=== PATIENT | female | born 1985 | race Two or more races ===

== ENCOUNTER 2016-12-16 09:54 | Emergency (ER) | payer MEDICAID ==
[~2016-12-16] VITALS: Ht 165.1 cm; Wt 54.4 kg
[2016-12-16 10:10] VITALS: BP 117/62
== END 2016-12-16 10:46 | disposition home or self-care (01) ==
LOC: ER 09:56
DX: J02.9 Acute pharyngitis, unspecified (principal)
CPT/HCPCS: 99283; A4606; Z7610

== ENCOUNTER 2017-02-03 17:03 | Emergency (ER) | payer MEDICAID ==
[~2017-02-03] VITALS: Ht 165.1 cm; Wt 55.3 kg
[2017-02-03 17:03] VITALS: BP 129/81
== END 2017-02-03 18:16 | disposition home or self-care (01) ==
LOC: ER 17:06
DX: M25.531 Pain in right wrist (principal); F41.9 Anxiety disorder, unspecified
CPT/HCPCS: 29125; 73110; 99284; A4606; Z7610

== ENCOUNTER 2017-02-17 11:17 | Emergency (ER) | payer MEDICAID ==
[~2017-02-17] VITALS: Ht 165.1 cm; Wt 55.8 kg
[2017-02-17 11:22] VITALS: BP 105/56
[2017-02-17] MEDS ORDERED: IBUPROFEN 600 MG TABLET PO ONE ×2 (12:21→12:30)
== END 2017-02-17 13:56 | disposition home or self-care (01) ==
LOC: ER 11:19
DX: S93.401A Sprain of unspecified ligament of right ankle, initial encounter (principal); X50.9XXA Other and unspecified overexertion or strenuous movements or postures, initial encounter; Y93.89 Activity, other specified; Y92.89 Other specified places as the place of occurrence of the external cause; Y99.8 Other external cause status
CPT/HCPCS: 73610; 84703; 99284; A4606; Z7610

== ENCOUNTER 2017-07-22 14:18 | Emergency (ER) | payer MEDICAID ==
[~2017-07-22] VITALS: Ht 165.1 cm; Wt 59.0 kg
[2017-07-22 14:18] VITALS: BP 130/81
== END 2017-07-22 16:33 | disposition home or self-care (01) ==
LOC: ER 14:19
DX: M65.4 Radial styloid tenosynovitis [de Quervain] (principal); F10.10 Alcohol abuse, uncomplicated; F32.9 Major depressive disorder, single episode, unspecified; F41.9 Anxiety disorder, unspecified
CPT/HCPCS: 29125; 73130; 99284; A4606; Z7610

== ENCOUNTER 2019-02-17 13:55 | Emergency (ER) | payer MEDICAID ==
[~2019-02-17] VITALS: Ht 165.1 cm; Wt 59.0 kg
--- NOTE | 2019-02-17 14:00 | NUR ---
CAME IN FOR R FLANK PAIN THAT STARTED LAST NIGHT. NOTICED FOUL SMELLING URINE, -DYSURIA. TO ER BED 10, HOOKED TO MONITOR, CHANGED TO GOWN, PROVIDED W WARM BLANKET, AWAITING MD VELAZQUEZ.
--- NOTE | 2019-02-17 14:04 | NUR ---
DR MELLO AT BEDSIDE
[2019-02-17] MEDS ORDERED: ACETAMINOPHEN ES 500 MG TABLET ONE (14:12)
--- NOTE | 2019-02-17 14:16 | NUR ---
PT NOT ABLE TO PROVIDE URINE SAMPLE AT THIS TIME. AWARE
--- NOTE | 2019-02-17 14:18 | NUR ---
US TECH AT BEDSIDE
[2019-02-17 14:19] LABS: BASOPHILS # (AUTO) 0.1 /CMM (0.0-0.2); BASOPHILS % (AUTO) 1.3 % (0.0-2.0); EOSINOPHILS % (AUTO) 6.5 % (0.0-6.0); HEMATOCRIT 37 % (33-45); HEMOGLOBIN 12.5 g/dL (11.5-14.8); LYMPHOCYTES # (AUTO) 2.4 /CMM (0.8-4.8); LYMPHOCYTES % (AUTO) 31.3 % (20.0-44.0); MEAN CORPUSCULAR HGB CONC 34 g/dl (31.0-36.0); MEAN CORPUSCULAR VOLUME 90 fL (82-100); MONOCYTES # (AUTO) 0.5 /CMM (0.1-1.30); MONOCYTES % (AUTO) 7.1 % (2.0-12.0); NEUTROPHILS # (AUTO) 4.1 /CMM (1.8-8.9); NEUTROPHILS % (AUTO) 53.8 % (43.0-81.0); PLATELET COUNT (AUTO) 203 /CMM (150-450); RED BLOOD CELL COUNT(AUTO) 4.11 MIL/uL (4.0-5.2); WHITE BLOOD COUNT (AUTO) 7.7 K/uL (4.3-11.0)
[2019-02-17 14:26] LABS: CALCIUM, SERUM 9.3 mg/dL (8.5-10.1); CREATININE 0.8 mg/dL (0.6-1.3); POTASSIUM 4.6 mmol/L (3.5-5.1)
[2019-02-17] MEDS ORDERED: ACETAMINOPHEN ES 500 MG TABLET PO ONE (14:30)
--- NOTE | 2019-02-17 14:30 | NUR ---
PT REFUSED FOR IV INSERTION. MADE AWARE.
[2019-02-17 14:31] LABS: ALBUMIN 3.8 g/dL (3.4-5.0); BILIRUBIN,DIRECT 0.2 mg/dL (0.0-0.2); BILIRUBIN,TOTAL 1.1 mg/dL (0.2-1.0); TOTAL PROTEIN, SERUM 7.9 g/dL (6.4-8.2)
[2019-02-17 15:20] LABS: APPEARANCE,URINE Clear (CLEAR); BILIRUBIN,URINE Negative (NEGATIVE); BLOOD, URINE Negative Ery/uL (NEGATIVE); COLOR,URINE Yellow (YELLOW); KETONES,URINE Negative (NEGATIVE); LEUKOCYTE ESTERASE ,URINE Negative (NEGATIVE); NITRITE, URINE Negative (NEGATIVE); PROTEIN,URINE Negative (NEGATIVE); UGLUCOSE Negative (NEGATIVE); UROBILINOGEN,URINE 0.2 EU/dL (0.2)
--- NOTE | 2019-02-17 15:55 | NUR ---
Patient discharged to home in stable condition. Written and verbal after care instructions given. Patient verbalizes understanding of instruction.
[2019-02-17 15:57] VITALS: BP 124/74
== END 2019-02-17 15:58 | disposition home or self-care (01) ==
LOC: ER 13:57
DX: R10.11 Right upper quadrant pain (principal); F10.10 Alcohol abuse, uncomplicated; Y90.9 Presence of alcohol in blood, level not specified; Z60.2 Problems related to living alone
CPT/HCPCS: 36415; 76705-TC; 80048-TC; 80076-TC; 81000-TC; 83690-TC; 84703-TC; 85025-TC; 87086-TC

== ENCOUNTER 2019-04-13 23:50 | Emergency (ER) | payer MEDICAID ==
[~2019-04-13] VITALS: Ht 162.6 cm; Wt 59.9 kg
--- NOTE | 2019-04-13 23:55 | NUR ---
bibs for l ankle pain and swelling s/p fall an hour ago.
[2019-04-14] MEDS ORDERED: IBUPROFEN 200 MG TABLET ONE (00:08)
[2019-04-14] MEDS ORDERED: IBUPROFEN 600 MG TABLET PO ONE (00:08)
[2019-04-14] MEDS ORDERED: IBUPROFEN 400 MG TABLET PO ONE (00:30)
--- NOTE | 2019-04-14 00:32 | NUR ---
RADIOLOGY AT BEDSIDE.
--- NOTE | 2019-04-14 01:10 | NUR ---
pt was provided w/ craches. l ankle was wrapped w/ ashley bandage.
--- NOTE | 2019-04-14 01:19 | NUR ---
Patient discharged to home in stable condition. Rx and Written and verbal after care instructions given. Patient verbalizes understanding of instruction.
[2019-04-14 01:21] VITALS: BP 121/53
== END 2019-04-14 01:22 | disposition home or self-care (01) ==
LOC: ER 23:55
DX: S93.492A Sprain of other ligament of left ankle, initial encounter (principal); F10.10 Alcohol abuse, uncomplicated; Y90.9 Presence of alcohol in blood, level not specified; Z60.2 Problems related to living alone; W01.0XXA Fall on same level from slipping, tripping and stumbling without subsequent striking against object, initial encounter; Y93.01 Activity, walking, marching and hiking; Y92.89 Other specified places as the place of occurrence of the external cause; Y99.8 Other external cause status
CPT/HCPCS: 73610-TC

== ENCOUNTER 2019-07-24 11:26 | Emergency (ER) | payer MEDICAID ==
[~2019-07-24] VITALS: Ht 165.1 cm; Wt 59.9 kg
--- NOTE | 2019-07-24 11:36 | NUR ---
PT C/O R UPPER BACK PAIN x 5 DAYS 07/20 PS. PT AAOX4, VSS, BREATHING EVEN AND UNLABORED W/ NO ACUTE DISTRESS NOTED, AMBULATORY W/ STEADY GAIT. PT CONNECTED TO THE MONITOR AND POX. WILL CONTINUE TO MONITOR.
[2019-07-24] MEDS ORDERED: KETOROLAC TROMETHAMINE INJ 30 MG/ML VIAL ONE (11:44)
[2019-07-24] MEDS ORDERED: KETOROLAC TROMETHAMINE INJ 60 MG/2 ML VIAL IM ONE (12:00)
--- NOTE | 2019-07-24 12:01 | NUR ---
Vital signs are stable. Patient discharged to home in stable condition. Written and verbal after care instructions given. Patient verbalizes understanding of instruction.
[2019-07-24 12:02] VITALS: BP 112/71
== END 2019-07-24 12:03 | disposition home or self-care (01) ==
LOC: ER 11:32
DX: M54.6 Pain in thoracic spine (principal); F10.10 Alcohol abuse, uncomplicated; Y90.9 Presence of alcohol in blood, level not specified; Z60.2 Problems related to living alone
CPT/HCPCS: 96372; 99283; J1885